=== PATIENT | female | born 1985 | race Caucasian/White ===

== ENCOUNTER → 2022-12-06 | Outpatient (CLI) | payer OTHER ==
[2022-12-06 13:22] LABS: FOLLICLE STIMULATING HORMONE 5.7 mIU/ML; FREE T4 0.95 NG/DL (0.89-1.76); LUTEINIZING HORMONE 9.4 mIU/ML; THYROID STIMULATING HORMONE 1.65 uIU/ML (0.55-4.78)
== END ==
LOC: M LAB 11:57
PROVIDERS: ATTEND Physician Assistant
DX: L65.9 Nonscarring hair loss, unspecified (principal)